=== PATIENT | male | born 1990 | race Caucasian/White ===

== ENCOUNTER 2021-04-14 16:46 | Emergency (ER) | payer OTHER ==
[~2021-04-14] VITALS: Ht 175.3 cm; Wt 53.8 kg
[~2021-04-14 16:46] MED LIST: NO HOME MEDICATIONS
[2021-04-14 17:33] VITALS: TEMP 98.2
[2021-04-14] MEDS ORDERED: NOVOLOG FLEX100 U/ML SQ (17:36)
[2021-04-14] MEDS ORDERED: LEVEMIR FLEX100 U/ML SQ (17:36)
[2021-04-14 18:00] LABS: BASO # 0.1 K/mm3 (0.0-0.2); BASO % 2.1 % (0.0-2.0); EOS # 0.1 K/mm3 (0.0-0.7); EOS % 2.4 % (0.0-4.0); GRAN % 52.6 % (42.2-75.2); HEMATOCRIT 42.1 % (42.0-52.0); HEMOGLOBIN 15.1 g/dl (13.5-18.0); LYMPH # 1.1 K/mm3 (1.2-3.4); LYMPH % 29.9 % (20.0-51.0); MEAN CELL VOLUME 89 fl (80.0-100.0); MEAN CORPUSCULAR HEMOGLOBIN 32 pg (27-31); MEAN CORPUSCULAR HGB CONC 36 g/dl (33.0-37.0); MEAN PLATELET VOLUME 11.3 fl (7.4-10.4); MONO # 0.5 K/mm3 (0.1-0.6); MONO % 12.5 % (1.7-9.3); PLATELET COUNT 224 K/mm3 (130-400); RED BLOOD COUNT 4.73 M/mm3 (4.20-5.60); REDCELL DISTRIBUTION WIDTH-CV 11.6 % (11.5-14.5)
[2021-04-14 18:18] LABS: ALANINE AMINOTRANSFERASE 24 U/L (0-55); ALBUMIN 4.2 gm/dL (3.5-5.0); ALKALINE PHOSPHATASE 82 U/L (40-150); ANION GAP 14 mmol/L (7-16); AST,SGOT 14 U/L (5-34); BILIRUBIN,TOTAL 0.9 mg/dL (0.2-1.2); BLOOD UREA NITROGEN 14 mg/dL (9-21); CARBON DIOXIDE 24 mmol/L (22-29); CREATININE, serum 1.29 mg/dL (0.72-1.25); LIPASE 36 U/L (8-78); POTASSIUM 4.6 mmol/L (3.5-4.5); SODIUM 124 mmol/L (136-145); TOTAL PROTEIN 6.9 gm/dL (6.2-8.1)
[2021-04-14 18:20] LABS: CHLORIDE 86 mmol/L (98-107); GLUCOSE 902 mg/dL (70-99)
[2021-04-14 18:24] LABS: ACETONE,SERUM NEGATIVE
[2021-04-14 18:38] LABS: COLLECTION METHOD CLEAN CATCH
[2021-04-14 18:46] LABS: PH 8 (5-8); SQUAMOUS EPITHELIAL None Seen /hpf (0-10); URINE APPEARANCE Clear (CLEAR/HAZY); URINE BACTERIA None Seen /hpf (NONE SEEN); URINE BILIRUBIN Negative (NEGATIVE); URINE BLOOD Negative (NEGATIVE); URINE COLOR Colorless (YELLOW); URINE GLUCOSE 3+ (NEGATIVE); URINE KETONE 1+ (NEGATIVE); URINE LEUKOCYTE ESTERASE Negative (NEGATIVE); URINE NITRATE Negative (NEGATIVE); URINE PROTEIN(semi-quant) Negative (NEGATIVE); URINE RBC None Seen /hpf (0-2); URINE UROBILINOGEN Negative (NEGATIVE)
[2021-04-14 21:04] VITALS: BP 117/90; PULSE 72
== END 2021-04-14 21:01 | disposition home or self-care (01) ==
LOC: COL.ER 16:46
PROVIDERS: Emergency Medicine
DX: E10.65 Type 1 diabetes mellitus with hyperglycemia (principal); H61.22 Impacted cerumen, left ear; F17.290 Nicotine dependence, other tobacco product, uncomplicated; Z20.822 Contact with and (suspected) exposure to COVID-19
CPT/HCPCS: J1815; J7120

== ENCOUNTER 2023-10-25 10:43 | Inpatient (IN) | payer OTHER ==
[2023-10-25] VITALS (411 sets, daily range): BP systolic 129–139; BP diastolic 73–90; PULSE 126–141; TEMP 98.1–99.2; O2SAT 95–100
[~2023-10-25] VITALS: Ht 177.8 cm; Wt 62.9 kg
[~2023-10-25 10:43] MED LIST changes: +AMOXICILLIN 8751 TAB PO; +BENADRYL25 M2 PO; +DEXCOM G6 SENS1 EACH MC; +LEVEMIR FLEX100 U/ML SQ; +LEVEMIR100 U/ML SQ; +NOVOLOG FLEX100 U/ML SQ; +ONE-A-DAY MEN'S1 TAB PO; +PRINIVIL2.5 MG PO; +TRICOR 48MG48 MG PO; +VITAMIN D 50,1.25 MG PO; +[UNRECOGNIZED DRUG - SUPPLY] MC
[2023-10-25 11:28] LABS: HEMATOCRIT 50.8 % (42.0-52.0); HEMOGLOBIN 16.6 g/dl (13.5-18.0); MEAN CELL VOLUME 94 fl (80.0-100.0); MEAN CORPUSCULAR HEMOGLOBIN 31 pg (27-31); MEAN CORPUSCULAR HGB CONC 33 g/dl (33.0-37.0); MEAN PLATELET VOLUME 11.2 fl (7.4-10.4); PLATELET COUNT 333 K/mm3 (130-400); RED BLOOD COUNT 5.39 M/mm3 (4.20-5.60); REDCELL DISTRIBUTION WIDTH-CV 11.9 % (11.5-14.5)
[2023-10-25] MEDS ORDERED: NS 1,000 ML IV ONE ×4 (11:30→17:30)
[2023-10-25] MEDS ORDERED: Ondansetron 4 MG/2 ML VIAL IV ONE (11:30)
[2023-10-25] MEDS ORDERED: Insulin Human Regular/NS 100 ML IV ONE (11:45)
[2023-10-25 11:48] LABS: ALANINE AMINOTRANSFERASE 59 U/L (0-55); ALBUMIN 5.4 g/dL (3.5-5.0); ALKALINE PHOSPHATASE 71 U/L (40-150); ANION GAP 37 mmol/L (7-16); AST,SGOT 24 U/L (5-34); BILIRUBIN,TOTAL 0.9 mg/dL (0.2-1.2); BLOOD UREA NITROGEN 20 mg/dL (9-21); CALCIUM 9.9 mg/dL (8.4-10.2); CHLORIDE 91 mEq/L (98-107); CREATININE, serum 2.33 mg/dL (0.72-1.25); LIPASE 57 U/L (8-78); MAGNESIUM 2.3 mg/dL (1.6-2.6); PHOSPHOROUS 8.2 mg/dL (2.3-4.7); SODIUM 134 mEq/L (136-145); TOTAL PROTEIN 8.8 g/dl (6.2-8.1)
[2023-10-25 11:52] LABS: ACETONE,SERUM SMALL
[2023-10-25 11:53] LABS: BAND 3 % (0-10); LYMPHOCYTE 8 % (20.0-51.0); METAMYELOCYTE 1 % (0-0)
[2023-10-25 11:54] LABS: HYPOCHROMIA 1+; NEUTROPHILS 80 % (42.0-75.2); PLATELET ESTIMATE NORMAL (NORMAL)
[2023-10-25 11:56] LABS: GLUCOSE 642 mg/dL (70-99); POTASSIUM 5.8 mEq/L (3.5-4.5)
[2023-10-25] MEDS ORDERED: Sodium Bicarbonate 8.4% 50 MEQ/50 ML SYRINGE IV ONE (12:15)
[2023-10-25] MEDS ORDERED: Ondansetron 4 MG/2 ML VIAL IV PRN (12:30)
[2023-10-25] MEDS ORDERED: Acetaminophen 500 MG TAB PO PRN (12:30)
[2023-10-25] MEDS ORDERED: Insulin Human Regular/NS 100 ML IV SCH (12:45)
[2023-10-25] MEDS ORDERED: Insulin Regular Human (NovoLIN R/HumuLIN R) IV ONE (12:45)
[2023-10-25] MEDS ORDERED: D5W 1,000 ML IV SCH (12:45)
[2023-10-25] MEDS ORDERED: NS 1,000 ML IV SCH ×2 (12:45→15:15)
[2023-10-25] MEDS ORDERED: BASAGLAR K100 UNIT/1 SQ (13:04)
[2023-10-25] MEDS ORDERED: ADMELOG SO100 UNIT/1 (13:05)
[2023-10-25] MEDS ORDERED: LEVEMIR FLEX100 U/ML (13:05)
[2023-10-25 13:20] LABS: COLLECTION METHOD CLEAN CATCH
[2023-10-25 13:26] LABS: URINE APPEARANCE CLEAR (CLEAR/HAZY); URINE BLOOD NEGATIVE (NEGATIVE); URINE COLOR YELLOW (YELLOW); URINE GLUCOSE 3+ (NEGATIVE); URINE KETONE 4+ (NEGATIVE); URINE NITRATE NEGATIVE (NEGATIVE); URINE PROTEIN(semi-quant) 2+ (NEGATIVE); URINE UROBILINOGEN 0.2 E.U/dL (0.2-1.0)
[2023-10-25 13:37] LABS: TRICYCLIC ANTIDEPRESS URINE NEGATIVE (NEGATIVE)
[2023-10-25 13:45] LABS: MAGNESIUM 2.2 mg/dL (1.6-2.6); PHOSPHOROUS 6.2 mg/dL (2.3-4.7)
[2023-10-25] MEDS ORDERED: *Potassium Replacement Protocol MC SCH (14:00)
[2023-10-25] MEDS ORDERED: ADMELOG SO100 UNIT/1 SQ (14:34)
--- NOTE | 2023-10-25 15:29 | NUR ---
PT ARRIVED TO THE UNIT 1345 WITH JOSE ANTONIO MELENDEZ FROM ED. PT TRANSFERED TO ICU BED AND ATTACHED TO MONITERING DEVICES. PT ARRIVED WITH PANTS AND PERSONAL PHONE.
[2023-10-25 15:43] LABS: CALCIUM 8.6 mg/dL (8.4-10.2); CREATININE, serum 1.77 mg/dL (0.72-1.25); POTASSIUM 4.8 mEq/L (3.5-4.5)
[2023-10-25] MEDS ORDERED: Heparin 5,000 UNITS/ML 1 ML VIAL SQ SCH (16:00)
[2023-10-25 19:19] LABS: CALCIUM 8.1 mg/dL (8.4-10.2); CREATININE, serum 1.56 mg/dL (0.72-1.25); POTASSIUM 4.6 mEq/L (3.5-4.5)
[2023-10-25 19:36] LABS: MAGNESIUM 1.9 mg/dL (1.6-2.6); PHOSPHOROUS 1.4 mg/dL (2.3-4.7)
--- NOTE | 2023-10-25 20:13 | NUR ---
PATIENT IN BED RESTING. DROWSY, BUT EASILY ROUSABLE, ORIENTEDX4, PLEASANT AND COOPERATIVE. PATIENT IS RUNNING D5W AT 250/HR TO RW, AND REGULAR INSULIN AT 10ML/HR TO RW. PATIENT HAS NO C/O PAIN AT THIS TIME, BUT DOES C/O NAUSEA. 4MG ZOFRAN GIVEN. PATIENT HAS BEEN IN SINUS TACH WITH BOUNDING PULSES, MAINTAINING A HEART RATE IN THE 120s. PATIENT HAD FIRST VOID SINCE ADMISSION, OUT PUT OF 850ML OF CLEAR YELLOW URINE. EXPLAINED TO PATIENT THAT HE HAS HAD ROUGHLY 4L OF FLUID SO HE MAY START GOING TO THE RESTROOM MORE FREQUENTLY THAN HE IS USED TO. CALL LIGHT IN REACH, POSESSIONS IN REACH, AND BED IN LOW POSITION.
[2023-10-25 23:04] LABS: ANION GAP 11 mmol/L (7-16); BLOOD UREA NITROGEN 12 mg/dL (9-21); CALCIUM 8.2 mg/dL (8.4-10.2); CHLORIDE 110 mEq/L (98-107); CREATININE, serum 1.36 mg/dL (0.72-1.25); GLUCOSE 240 mg/dL (70-99); MAGNESIUM 1.8 mg/dL (1.6-2.6); POTASSIUM 3.8 mEq/L (3.5-4.5); SODIUM 135 mEq/L (136-145)
[2023-10-25 23:10] LABS: PHOSPHOROUS < 0.9 mg/dL (2.3-4.7)
[2023-10-25] MEDS ORDERED: Potassium Chloride 100 ML IV SCH (23:45)
[2023-10-26] VITALS (654 sets, daily range): BP systolic 109–128; BP diastolic 61–81; PULSE 84–114; TEMP 98–99.1; O2SAT 91–100
[2023-10-26 03:03] LABS: MEAN CORPUSCULAR HGB CONC 37 g/dl (33.0-37.0); MEAN PLATELET VOLUME 9.9 fl (7.4-10.4); RED BLOOD COUNT 4.02 M/mm3 (4.20-5.60); REDCELL DISTRIBUTION WIDTH-CV 11.5 % (11.5-14.5)
[2023-10-26 03:07] LABS: HEMATOCRIT 33.6 % (42.0-52.0); HEMOGLOBIN 12.5 g/dl (13.5-18.0); MEAN CORPUSCULAR HEMOGLOBIN 31 pg (27-31)
[2023-10-26 03:08] LABS: MEAN CELL VOLUME 84 fl (80.0-100.0); PLATELET COUNT 226 K/mm3 (130-400)
[2023-10-26 03:39] LABS: CALCIUM 8.4 mg/dL (8.4-10.2); CREATININE, serum 1.09 mg/dL (0.72-1.25); MAGNESIUM 1.8 mg/dL (1.6-2.6); POTASSIUM 3.2 mEq/L (3.5-4.5)
[2023-10-26 03:40] LABS: PHOSPHOROUS < 0.9 mg/dL (2.3-4.7)
[2023-10-26 04:00] LABS: LYMPHOCYTE 12 % (20.0-51.0); NEUTROPHILS 76 % (42.0-75.2)
[2023-10-26 04:01] LABS: PLATELET ESTIMATE NORMAL (NORMAL)
[2023-10-26] MEDS ORDERED: Potassium Bicarbonate/Citrate 20 MEQ Effervescent TAB PO SCH ×2 (06:45→11:00)
[2023-10-26 07:02] LABS: CALCIUM 8.7 mg/dL (8.4-10.2); POTASSIUM 3.1 mEq/L (3.5-4.5)
[2023-10-26 07:28] LABS: MAGNESIUM 1.9 mg/dL (1.6-2.6)
--- NOTE | 2023-10-26 08:00 | NUR ---
Patient alert and oriented; resting in bed. VS stable. Call light left within reach and denies any needs or concerns at this time.
--- NOTE | 2023-10-26 09:58 | NUR ---
workers' compensation commissioner met with pt to discuss intake information. He reports to live with people in [place]. He sees Dr. Montesinos for PCP needs and obtains medications from [facility] with no difficulties. He confirms to have [facility] insurance. He is independent with ADLS and uses a glucose monitor for DME. He has no DPOA-HC and is agreeable to his mother being NOK. He has no further needs. Discharge Plan: home
[2023-10-26] MEDS ORDERED: Insulin Glargine-ygfn (Lantus) SQ SCH (11:00)
[2023-10-26] MEDS ORDERED: 1/2 NS & 20 mEq KCl 1,000 ML IV SCH (11:00)
[2023-10-26] MEDS ORDERED: Glucagon 1 MG VIAL IM PRN (11:00)
[2023-10-26] MEDS ORDERED: Dextrose (Glucose) 15 GM (4 x 3.75 GM) Chewable TABLET PACK PO PRN (11:00)
[2023-10-26] MEDS ORDERED: Dextrose 50% Water 25 GM/50 ML SYRINGE IV PRN (11:00)
[2023-10-26 11:24] LABS: CALCIUM 8.2 mg/dL (8.4-10.2); CREATININE, serum 0.91 mg/dL (0.72-1.25); POTASSIUM 3.3 mEq/L (3.5-4.5)
[2023-10-26 11:26] LABS: MAGNESIUM 1.9 mg/dL (1.6-2.6)
[2023-10-26] MEDS ORDERED: Insulin Lispro (HumaLOG) SQ SCH (12:00)
--- NOTE | 2023-10-26 12:00 | NUR ---
BLODO GLUCOSE 79, PT ALERT AND ORIENTED. INSULIN DRIP DISCONTINUED, ORANGE JUICE GIVEN AND LUNCH ORDERED. PT DENIES NEEDS.
--- NOTE | 2023-10-26 17:59 | NUR ---
PT TRANSFERRED TO MEDICAL FLOOR VIA [facility]ELHIAR WITH BELONGINGS. PT DENIES NEEDS. PT HANDED OFF TO JOSE ANTONIO SIDDIQUI
[2023-10-26 18:24] LABS: CALCIUM 8.2 mg/dL (8.4-10.2); CREATININE, serum 0.91 mg/dL (0.72-1.25); POTASSIUM 3.6 mEq/L (3.5-4.5)
--- NOTE | 2023-10-26 22:23 | NUR ---
PATIENT RESTING IN BED WATCHING TV. HE HAS HAD A SHOWER TONIGHT, COMPLETED INDEPENDANTLY. DENIES ANY PAIN BUT IS REPORTING SOME INDIGESTION. CALL LIGHT IS WITHIN REACH. BED IS LOCKED AND IN LOW POSITION.
[2023-10-27 03:13] VITALS: BP 128/68; PULSE 87; TEMP 99.1
[2023-10-27 06:38] LABS: BASO % 0.6 % (0.0-2.0); EOS % 0.1 % (0.0-4.0); GRAN # 3.8 K/mm3 (1.4-6.5); GRAN % 53.7 % (42.2-75.2); HEMOGLOBIN 12.6 g/dl (13.5-18.0); LYMPH # 2.4 K/mm3 (1.2-3.4); LYMPH % 34.4 % (20.0-51.0); MEAN CELL VOLUME 84 fl (80.0-100.0); MEAN CORPUSCULAR HEMOGLOBIN 31 pg (27-31); MEAN CORPUSCULAR HGB CONC 37 g/dl (33.0-37.0); MEAN PLATELET VOLUME 10.2 fl (7.4-10.4); MONO # 0.8 K/mm3 (0.1-0.6); MONO % 10.9 % (1.7-9.3); PLATELET COUNT 197 K/mm3 (130-400); RED BLOOD COUNT 4.03 M/mm3 (4.20-5.60); REDCELL DISTRIBUTION WIDTH-CV 11.6 % (11.5-14.5)
[2023-10-27 06:40] LABS: HEMATOCRIT 33.7 % (42.0-52.0)
[2023-10-27 06:52] LABS: ANION GAP 9 mmol/L (7-16); CALCIUM 8.5 mg/dL (8.4-10.2); CHLORIDE 105 mEq/L (98-107); CREATININE, serum 0.76 mg/dL (0.72-1.25); GLUCOSE 189 mg/dL (70-99); MAGNESIUM 1.9 mg/dL (1.6-2.6); PHOSPHOROUS 1.7 mg/dL (2.3-4.7); POTASSIUM 3.6 mEq/L (3.5-4.5); SODIUM 139 mEq/L (136-145)
[2023-10-27 06:53] LABS: BLOOD UREA NITROGEN < 5 mg/dL (9-21)
--- NOTE | 2023-10-27 07:33 | NUR ---
STUDENT NURSE RECIEVED REPORT FROM REGRADER NURSE AT 0630. PATIENT IN SUTHERLAND'S POSITION IN BED RESTING. PATIENT DID NOT HAVE ANY CONCERNS OR REQUESTS AT THIS TIME.
[2023-10-27 07:35] VITALS: BP 122/86; PULSE 76; TEMP 98.7
[2023-10-27] MEDS ORDERED: Potassium Bicarbonate/Citrate 20 MEQ Effervescent TAB PO SCH (08:15)
[2023-10-27] MEDS ORDERED: PROTONIX 40MG T40 MG PO (08:24)
[2023-10-27] MEDS ORDERED: Mag/Al Hydrox/Simeth Susp 30 ML CUP PO ONE (08:30)
--- NOTE | 2023-10-27 09:44 | NUR ---
35 UNITS LANUTS, 4 UNITS LANTUS, 5000 UNITS HEPARIN, 250 MG PHOSPHORUS TAB ADMINISTERED THIS MORNING. EFFER-K NOT ADMINISTERED DUE TO PATIENT C/O PAIN IN ESOPHAGUS. PATIENT AMBULATING INDEPENDENTLY.
--- NOTE | 2023-10-27 10:41 | NUR ---
Patient resting in bed, alert and oriented x 4, VSS. Watching TV. States no pain or discomfort. Assessment completed, ready to go home. Discharge information provided. All questions answered. IV access discontinued.
== END 2023-10-27 10:55 | disposition home or self-care (01) | DRG 638 ==
LOC: COL.ER 10:43 → ICU 12:26 → MEDICAL 10-26 20:00
PROVIDERS: Emergency Medicine; Internal Medicine; ADMIT Internal Medicine
DX: E10.10 Type 1 diabetes mellitus with ketoacidosis without coma (principal); N17.9 Acute kidney failure, unspecified; R65.10 Systemic inflammatory response syndrome (SIRS) of non-infectious origin without acute organ dysfunction; Z66 Do not resuscitate; E87.5 Hyperkalemia; E87.6 Hypokalemia; K21.9 Gastro-esophageal reflux disease without esophagitis; E83.39 Other disorders of phosphorus metabolism; E86.9 Volume depletion, unspecified; F17.210 Nicotine dependence, cigarettes, uncomplicated; Z88.8 Allergy status to other drugs, medicaments and biological substances; Z79.4 Long term (current) use of insulin
CPT/HCPCS: J0780; J1644; J1815; J2405; J3480; J7030; J7070

== ENCOUNTER 2023-12-05 06:48 | Inpatient (IN) | payer OTHER ==
[~2023-12-05] VITALS: Ht 152.4 cm; Wt 61.3 kg
[2023-12-05] VITALS (486 sets, daily range): BP systolic 115–131; BP diastolic 69–79; PULSE 122–151; TEMP 98.1–99; O2SAT 98–100
[~2023-12-05 06:48] MED LIST changes: +ADMELOG SO100 UNIT/1; +ADMELOG SO100 UNIT/1 SQ; +BASAGLAR K100 UNIT/1 SQ; +LEVEMIR FLEX100 U/ML; +PROTONIX 40MG T40 MG PO
[2023-12-05] MEDS ORDERED: Ondansetron 4 MG/2 ML VIAL IM ONE (07:32)
[2023-12-05] MEDS ORDERED: NS 1,000 ML IV ONE ×4 (08:00→08:15)
[2023-12-05 08:12] LABS: HEMATOCRIT 50.4 % (42.0-52.0); HEMOGLOBIN 16.2 g/dl (13.5-18.0); MEAN CELL VOLUME 98 fl (80.0-100.0); MEAN CORPUSCULAR HEMOGLOBIN 31 pg (27-31); MEAN CORPUSCULAR HGB CONC 32 g/dl (33.0-37.0); MEAN PLATELET VOLUME 11.7 fl (7.4-10.4); PLATELET COUNT 362 K/mm3 (130-400); RED BLOOD COUNT 5.16 M/mm3 (4.20-5.60); REDCELL DISTRIBUTION WIDTH-CV 11.9 % (11.5-14.5)
[2023-12-05] MEDS ORDERED: droPERidol 2.5 MG/ML 2 ML VIAL IV ONE (08:15)
[2023-12-05] MEDS ORDERED: Insulin Human Regular/NS 100 ML IV ONE (08:15)
[2023-12-05 08:30] LABS: ALANINE AMINOTRANSFERASE 38 U/L (0-55); ALBUMIN 4.9 g/dL (3.5-5.0); ALKALINE PHOSPHATASE 81 U/L (40-150); AST,SGOT 27 U/L (5-34); BILIRUBIN,TOTAL 0.8 mg/dL (0.2-1.2); BLOOD UREA NITROGEN 41 mg/dL (9-21); CALCIUM 9.1 mg/dL (8.4-10.2); CREATININE, serum 3.59 mg/dL (0.72-1.25); SODIUM 129 mEq/L (136-145)
[2023-12-05 08:32] LABS: GLUCOSE 950 mg/dL (70-99)
[2023-12-05 08:33] LABS: CHLORIDE 84 mEq/L (98-107); POTASSIUM 6.4 mEq/L (3.5-4.5)
[2023-12-05] MEDS ORDERED: diphenhydrAMINE 50 MG/ML 1 ML VIAL IV ONE (08:45)
[2023-12-05 08:49] LABS: BAND 7 % (0-10); LYMPHOCYTE 10 % (20.0-51.0); METAMYELOCYTE 2 % (0-0); NEUTROPHILS 72 % (42.0-75.2); PLATELET ESTIMATE NORMAL (NORMAL)
[2023-12-05] MEDS ORDERED: Insulin Regular Human (NovoLIN R/HumuLIN R) IV ONE (09:00)
[2023-12-05] MEDS ORDERED: Acetaminophen 325 MG TAB PO PRN (09:15)
[2023-12-05] MEDS ORDERED: Insulin Human Regular/NS 100 ML IV SCH (09:15)
[2023-12-05] MEDS ORDERED: LR 1,000 ML IV SCH (09:15)
[2023-12-05] MEDS ORDERED: Docusate Sodium 100 MG CAP PO PRN (09:15)
[2023-12-05] MEDS ORDERED: Polyethylene Glycol 3350 17 GM PDS PO PRN (09:15)
[2023-12-05] MEDS ORDERED: D5 1/2 NS 1,000 ML IV SCH (09:15)
[2023-12-05] MEDS ORDERED: Ondansetron 4 MG/2 ML VIAL IV PRN (09:15)
[2023-12-05 09:43] LABS: COLLECTION METHOD CLEAN CATCH
[2023-12-05 09:58] LABS: URINE APPEARANCE CLEAR (CLEAR/HAZY); URINE BLOOD NEGATIVE (NEGATIVE); URINE COLOR YELLOW (YELLOW); URINE GLUCOSE 3+ (NEGATIVE); URINE KETONE 4+ (NEGATIVE); URINE NITRATE NEGATIVE (NEGATIVE); URINE PROTEIN(semi-quant) 1+ (NEGATIVE); URINE UROBILINOGEN 0.2 E.U/dL (0.2-1.0)
[2023-12-05 10:17] LABS: SQUAMOUS EPITHELIAL 0-2 /hpf (0-10); URINE BACTERIA NONE SEEN /hpf (NONE SEEN); URINE RBC 0-2 /hpf (0-2)
[2023-12-05 10:37] LABS: MAGNESIUM 2.7 mg/dL (1.6-2.6); PHOSPHOROUS 11.1 mg/dL (2.3-4.7)
[2023-12-05 11:17] LABS: CALCIUM 7.5 mg/dL (8.4-10.2); CREATININE, serum 2.26 mg/dL (0.72-1.25); POTASSIUM 4.9 mEq/L (3.5-4.5)
[2023-12-05 13:22] LABS: CREATININE, serum 2.18 mg/dL (0.72-1.25); POTASSIUM 5.1 mEq/L (3.5-4.5)
--- NOTE | 2023-12-05 15:36 | NUR ---
package worker met with patient to discuss discharge planning. Patient reports to live in [place] with his mother, Zaria, P# [phone]. PCP is Dr. Montesinos in [place], Pharmacy is [facility] in [place]. No issues affording medications. Insurance is Apport[employer]. No DPOA-HC and is not currently interested in completing one. Patient is okay with his mother, Zaria, being his next of kin for decision making. Patient reports he has a continuous glucose monitor and no other DME. Patient reports he has had no issues with filling his medications and picked up his prescriptions about a week or two ago. Patient reports to be independent with ADLS and is able to transport himself to and from appointments. Patient would like to return home at time of discharge. Discharge plan: Home
[2023-12-05 15:37] LABS: CALCIUM 8.4 mg/dL (8.4-10.2); CREATININE, serum 2.01 mg/dL (0.72-1.25); POTASSIUM 4.7 mEq/L (3.5-4.5)
[2023-12-05] MEDS ORDERED: Heparin 5,000 UNITS/ML 1 ML VIAL SQ SCH (16:00)
[2023-12-05 16:02] LABS: TRICYCLIC ANTIDEPRESS URINE NEGATIVE (NEGATIVE)
[2023-12-05 17:49] LABS: CALCIUM 8.4 mg/dL (8.4-10.2); CREATININE, serum 1.8 mg/dL (0.72-1.25); POTASSIUM 4.1 mEq/L (3.5-4.5)
--- NOTE | 2023-12-05 18:56 | NUR ---
PT ADMITTED FROM ED AT 1000. PT VERY DROWSY UPON ADMISSION, WAKES ONLY TO PERSISTENT VERBAL COMMANDS. NURSE UNABLE TO DO ADMISSION INTAKE DUE TO MENTAL STATUS. PT DID BECOME EASIER TO WAKE THROUGHOUT SHIFT BUT SLEEPS BETWEEN ALL DISTURBANCES.
[2023-12-05 19:39] LABS: CALCIUM 8.4 mg/dL (8.4-10.2); CREATININE, serum 1.64 mg/dL (0.72-1.25); POTASSIUM 3.7 mEq/L (3.5-4.5)
[2023-12-05] MEDS ORDERED: Potassium Chloride 100 ML IV SCH (20:00)
[2023-12-05] MEDS ORDERED: *Potassium Replacement Protocol MC SCH (20:00)
[2023-12-05 21:30] LABS: CALCIUM 8.3 mg/dL (8.4-10.2); CREATININE, serum 1.46 mg/dL (0.72-1.25); POTASSIUM 3.7 mEq/L (3.5-4.5)
[2023-12-05 23:18] LABS: CREATININE, serum 1.31 mg/dL (0.72-1.25); POTASSIUM 3.5 mEq/L (3.5-4.5)
[2023-12-06] VITALS (382 sets, daily range): BP systolic 115–137; BP diastolic 66–89; PULSE 81–110; TEMP 98.1–98.9; O2SAT 94–100
[2023-12-06] MEDS ORDERED: Potassium Chloride 100 ML IV SCH ×3 (01:15→09:45)
[2023-12-06] MEDS ORDERED: *Potassium Replacement Protocol MC SCH (01:15)
[2023-12-06 01:27] LABS: CREATININE, serum 1.18 mg/dL (0.72-1.25); POTASSIUM 3.4 mEq/L (3.5-4.5)
[2023-12-06 03:29] LABS: CREATININE, serum 1.03 mg/dL (0.72-1.25); POTASSIUM 3.5 mEq/L (3.5-4.5)
[2023-12-06 05:35] LABS: BASO % 0.2 % (0.0-2.0); GRAN # 7.9 K/mm3 (1.4-6.5); GRAN % 73.8 % (42.2-75.2); LYMPH # 1.3 K/mm3 (1.2-3.4); LYMPH % 12.4 % (20.0-51.0); MEAN CORPUSCULAR HGB CONC 37 g/dl (33.0-37.0); MEAN PLATELET VOLUME 10.3 fl (7.4-10.4); MONO # 1.4 K/mm3 (0.1-0.6); RED BLOOD COUNT 3.45 M/mm3 (4.20-5.60); REDCELL DISTRIBUTION WIDTH-CV 12.1 % (11.5-14.5)
[2023-12-06 05:54] LABS: CALCIUM 7.6 mg/dL (8.4-10.2); CREATININE, serum 1.06 mg/dL (0.72-1.25); POTASSIUM 3.6 mEq/L (3.5-4.5)
[2023-12-06 06:12] LABS: HEMATOCRIT 29.9 % (42.0-52.0); MEAN CORPUSCULAR HEMOGLOBIN 32 pg (27-31)
[2023-12-06 06:13] LABS: HEMOGLOBIN 10.9 g/dl (13.5-18.0); MEAN CELL VOLUME 87 fl (80.0-100.0); PLATELET COUNT 154 K/mm3 (130-400)
[2023-12-06] MEDS ORDERED: Dextrose (Glucose) 15 GM (4 x 3.75 GM) Chewable TABLET PACK PO PRN (07:15)
[2023-12-06] MEDS ORDERED: Glucagon 1 MG VIAL IM PRN (07:15)
[2023-12-06] MEDS ORDERED: Dextrose 50% Water 25 GM/50 ML SYRINGE IV PRN (07:15)
--- NOTE | 2023-12-06 07:51 | NUR ---
REPORT RECIEVED FROM JOSE ANTONIO HINTON. REVIEWED OVERNIGHT EVENTS. INSULIN DRIP IS RUNNING AT 3.5 UNITS PER HOUR. D5 1/2NS 250ML PER HOUR. POTASSIUM REPLACEMENT PROTOCOL INITIATED. LABS REVIEWED. PATIENT RESTING IN BED WITH EYES CLOSED, CALL LIGHT IS WITHIN REACH. WILL CONTINUE PLAN OF CARE.
[2023-12-06 08:49] LABS: CALCIUM 7.8 mg/dL (8.4-10.2); CREATININE, serum 0.94 mg/dL (0.72-1.25); POTASSIUM 3.5 mEq/L (3.5-4.5)
[2023-12-06] MEDS ORDERED: Insulin Glargine-ygfn (Lantus) SQ ONE (11:00)
[2023-12-06] MEDS ORDERED: Insulin Lispro (HumaLOG) SQ SCH (12:00)
--- NOTE | 2023-12-06 14:00 | NUR ---
Pt transitioned off of IV insulin. Pt will be Q4HR blood sugar checks with high sliding scale insulin.
--- NOTE | 2023-12-06 15:55 | NUR ---
printing table worker attended multidisciplinary meeting to discuss discharge plan. Patient may discharge home today.
[2023-12-07] VITALS (61 sets, daily range): BP systolic 127–130; BP diastolic 84–94; PULSE 72–79; TEMP 97.8–98.4; O2SAT 98–100
[2023-12-07 06:09] LABS: BASO % 0.6 % (0.0-2.0); EOS % 0.4 % (0.0-4.0); GRAN # 2.6 K/mm3 (1.4-6.5); GRAN % 49.1 % (42.2-75.2); LYMPH % 37.1 % (20.0-51.0); MEAN CELL VOLUME 86 fl (80.0-100.0); MEAN CORPUSCULAR HEMOGLOBIN 31 pg (27-31); MEAN CORPUSCULAR HGB CONC 36 g/dl (33.0-37.0); MEAN PLATELET VOLUME 10.2 fl (7.4-10.4); MONO # 0.7 K/mm3 (0.1-0.6); MONO % 12.4 % (1.7-9.3); PLATELET COUNT 171 K/mm3 (130-400); RED BLOOD COUNT 3.87 M/mm3 (4.20-5.60)
[2023-12-07 06:19] LABS: HEMATOCRIT 33.4 % (42.0-52.0)
[2023-12-07 07:38] LABS: ALANINE AMINOTRANSFERASE 40 U/L (0-55); ALBUMIN 3.2 g/dL (3.5-5.0); ALKALINE PHOSPHATASE 45 U/L (40-150); ANION GAP 8 mmol/L (7-16); AST,SGOT 39 U/L (5-34); BILIRUBIN,TOTAL 1.1 mg/dL (0.2-1.2); BLOOD UREA NITROGEN < 5 mg/dL (9-21); CALCIUM 8.4 mg/dL (8.4-10.2); CHLORIDE 101 mEq/L (98-107); CREATININE, serum 0.76 mg/dL (0.72-1.25); GLUCOSE 175 mg/dL (70-99); POTASSIUM 3.5 mEq/L (3.5-4.5); SODIUM 137 mEq/L (136-145); TOTAL PROTEIN 5.3 g/dl (6.2-8.1)
[2023-12-07] MEDS ORDERED: Potassium Chloride 100 ML IV SCH (08:45)
[2023-12-07] MEDS ORDERED: ZOFRAN 4MG T4 MG/TAB PO (10:47)
== END 2023-12-07 15:30 | disposition home or self-care (01) | DRG 637 ==
LOC: COL.ER 06:48 → ICU 09:11
PROVIDERS: Personal Emergency Response Attendant; ADMIT Internal Medicine
DX: E10.10 Type 1 diabetes mellitus with ketoacidosis without coma (principal); R65.11 Systemic inflammatory response syndrome (SIRS) of non-infectious origin with acute organ dysfunction; N17.9 Acute kidney failure, unspecified; E87.5 Hyperkalemia; F14.90 Cocaine use, unspecified, uncomplicated; H66.92 Otitis media, unspecified, left ear; Z79.4 Long term (current) use of insulin; Z91.048 Other nonmedicinal substance allergy status; Z79.85 Long-term (current) use of injectable non-insulin antidiabetic drugs; Z79.899 Other long term (current) drug therapy
CPT/HCPCS: J0612; J1200; J1644; J1790; J1815; J2405; J2543; J3480; J7030; J7120